=== PATIENT | female | born 1945 | race Caucasian/White ===

== ENCOUNTER 2020-09-01 21:01 | Observation (INO) ==
[2020-09-01] MEDS ORDERED: TISSUE ADHESIVE 1 EACH APPLICATOR TOP ONE (23:14)
[2020-09-01] MEDS ORDERED: SODIUM CHLORIDE 0.9% 500 ML IV STA (23:25)
[2020-09-01] MEDS ORDERED: DIPH/TET/ACEL PERT BOOSTER VACCINE 0.5 ML VIAL IM ONE (23:25)
[2020-09-01] MEDS ORDERED: ONDANSETRON 4 MG/2 ML VIAL IV STA (23:25)
[2020-09-01] MEDS ORDERED: LIDOCAINE 1%/EPI INJ 20 ML VIAL ONE (23:41)
[2020-09-02 00:10] LABS: Basophils % 0.3 % (0.0-0.8); Eosinophils # 0.1 10*3/uL (0.0-0.87); Eosinophils % 0.6 % (0.00-10.9); Hematocrit 39.3 VOL% (35.7-47.0); Hemoglobin 13.2 GM/DL (12.0-16.0); Immature Granulocytes % 0.8 %; Immature Granulocytes Absolute 0.09 #; Mean Corpuscular HGB Conc 33.6 GM/DL (32-36); Mean Corpuscular Volume 88.5 FL (87-102); Mean Platelet Volume 8.6 FL (9.6-12.0); Monocytes % 6.8 % (1.7-12.7); Neutrophils % 82.5 % (38.7-73.9); Platelet Count 306 T/CUMM (130-400); Red Blood Count 4.44 MC/CUMM (3.8-5.5); Red Cell Distribution Width 12.6 % (9.3-17.3); White Blood Count 11.3 T/CUMM (4-12)
[2020-09-02 00:33] LABS: Alanine Aminotransferase 17 U/L (13-56); Alkaline Phosphatase 127 U/L (45-117); Aspartate Amino Transferase 29 U/L (0-37); Bilirubin,Total < 0.39 MG/DL (0.2-1.0); Blood Urea Nitrogen 18 MG/DL (7-18); Calcium 9.1 MG/DL (8.5-10.1); Carbon Dioxide 26 MMOL/L (21-32); Estimated Glom Filtration Rate 102 ML/MIN; Glucose 93 MG/DL (74-106); Osmolality,Calculated 267.4 MOS/KG (273-304); Potassium 4.1 MMOL/L (3.5-5.1); Sodium 133 MMOL/L (136-145); Total Protein 7.2 G/DL (6.4-8.2)
[2020-09-02 00:40] LABS: INR 0.9; PT Patient Result 9.8 SECS (10.5-12.0)
[2020-09-02 00:42] LABS: Bilirubin,Urine Negative (Negative); Blood, Urine Negative (Negative); Glucose,Urine (UA) Negative (Negative); Hyaline Casts,Urine 5 /LPF (0-3); Ketones,Urine Negative (Negative); Mucus,Urine Occasional /LPF (Occasional); Nitrite,Urine Negative (Negative); Protein,Urine Negative; RBC,Urine 3 /HPF (0-4); Squamous Epithelial Cell,Urine Occasional /HPF (0-10); Urine Appearance CLEAR (Clear); Urine Color Yellow (Yellow); Urine Specific Gravity 1.016 (1.001-1.035); Urine Urobilinogen < 2.0 EU/DL (0.2-1.0)
[2020-09-02] MEDS ORDERED: GLUCAGON 1 MG VIAL IM PRN (01:34)
[2020-09-02] MEDS ORDERED: ZALEPLON 5 MG CAPSULE PO PRN (01:34)
[2020-09-02] MEDS ORDERED: DEXTROSE 50% 25 GM/50 ML VIAL IV PRN (01:34)
[2020-09-02] MEDS ORDERED: ACETAMINOPHEN 325 MG TABLET PO PRN (01:34)
[2020-09-02] MEDS: ONDANSETRON 4 MG/2 ML VIAL IV PRN ×2 (03:46→09:41)
[2020-09-02] MEDS ORDERED: SERTRALINE 100 MG TABLET PO SCH (09:00)
[2020-09-02] MEDS: MELOXICAM 7.5 MG TABLET PO SCH ×2 (09:24→09:31)
[2020-09-02] MEDS ORDERED: HYDROmorphone 2 MG/1 ML VIAL IV ONE (09:28)
[2020-09-02] MEDS ORDERED: NICOTINE 7 MG/24 HR PATCH TRANSDERM SCH (09:30)
[2020-09-02 14:01] VITALS: BP 135/53
== END 2020-09-02 14:54 | disposition home or self-care (01) ==
LOC: N.ED 21:01 → N.EDINP 21:01 → N.TELES 09-02 02:47
PROVIDERS: ADMIT Internal Medicine; ATTEND Internal Medicine